=== PATIENT | male | born 1980 | race Caucasian/White ===

== ENCOUNTER 2017-07-15 04:24 | Emergency (ER) | payer SELFPAY ==
[2017-07-15] MEDS ORDERED: DIPHTH,PERTUSS(ACELL),TET TOX 0.5 ML DISP.SYRIN. VAX IM ONE (04:45)
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
[2017-07-15 06:15] VITALS: BP 127/83
== END 2017-07-15 06:15 | disposition short-term general hospital (02) ==
LOC: ER 04:24
DX: S02.2XXB Fracture of nasal bones, initial encounter for open fracture (principal); Z91.041 Radiographic dye allergy status; V47.5XXA Car driver injured in collision with fixed or stationary object in traffic accident, initial encounter; Y93.I9 Activity, other involving external motion; Y92.410 Unspecified street and highway as the place of occurrence of the external cause; Y99.8 Other external cause status
CPT/HCPCS: 70450; 70486; 90471; 90715; 99285-25